=== PATIENT | male | born 1965 | race Caucasian/White ===

== ENCOUNTER 2023-03-08 09:01 | Outpatient (REF) | payer OTHER, SELFPAY | END 2023-03-08 09:02 | disposition home or self-care (01) | LOC: HO.HOSX 09:01 | PROVIDERS: Visit Provider Orthopaedic Surgery | DX: M25.511 Pain in right shoulder (principal) | CPT/HCPCS: 73030 ==

== ENCOUNTER 2023-03-08 09:56 | Outpatient (AMB) | payer OTHER, SELFPAY ==
--- NOTE | 2023-03-08 09:58 | A.OFFVIS_ITS ---
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 The patient did undergo right shoulder surgery in [place] approximately 10 years ago. He was told that he had ?bone spurs? removed from his right shoulder. He states that his right shoulder pain and weakness have been getting worse for the last year. He has done physical therapy exercises which aggravated his pain. He has also tried Tylenol and anti-inflammatory medicines which gave him minimal relief. He has had cortisone injections in the past which gave him no relief. FOR[facility]LY [facility] Social History (Updated 03/08/23 @ 10:07 by Stefany Wooten) Alcohol intake: current Patient Tobacco Use Status: Current everyday Tobacco user Physical Exam Const Other: Well-nourished well-developed very friendly male awake alert and oriented x3 in no acute distress the Extrem Other: Bilateral upper extremity examination shows good capillary refill, no skin lesions noted, normal sensation light touch Right shoulder examination shows decreased range of motion when compared to his left shoulder, 4+ out of 5 strength with supraspinatus testing, positive impingement signs, tenderness over his acromioclavicular joint, no instability Results Reviewed Results Reviewed: X-rays of the patient's right shoulder show severe acromioclavicular joint narrowing, a type 3 acromion, no acute bony abnormalities Assessment & Plan Assessment & Plan (1) Right shoulder pain: Code(s): M25.511 - Pain in right shoulder Plan Mr. Davis presents with progressively worsening right shoulder pain and weakness due to impingement syndrome, acromioclavicular joint arthritis and possible full-thickness rotator cuff tearing. Thus, I will send him for an MRI of his right shoulder for further evaluation of his rotator cuff tendons. If he does have a full-thickness tear I will recommend surgical repair to optimize is future functional level. He will continue with his range of motion exercises in the meantime. I will see him back once the MRI is completed to discuss the findings and treatment options. Feel free to call me at any time should questions regarding his orthopedic management arise. I spent 22 minutes in reviewing the patient's records and imaging studies, seeing the patient and documenting in the medical record. Orders: Orders XR shoulder RT min 2V Today M25.511 - Pain in right shoulder MR shoulder RT wo con Today M25.511 - Pain in right shoulder Coding Level of Care Code New Pt Level 2 (90937) Diagnoses Right shoulder pain M25.511
== END 2023-03-08 10:22 | disposition home or self-care (01) ==
PROVIDERS: Visit Provider Orthopaedic Surgery
DX: M25.511 Pain in right shoulder (principal)
CPT/HCPCS: 99202

== ENCOUNTER 2023-03-22 08:22 | Outpatient (AMB) | payer OTHER, SELFPAY ==
--- NOTE | 2023-03-22 08:29 | MHC.OFFVIS ---
Intake Vital Signs 03/22/23 08:32 Height 5 ft 6 in Weight 155 lb BMI 25.0 Intake Visit Reasons: OV-right shoulder MRI review Intake Note: Griffin is a 57 year old male who presents with his daughter for an MRI review of Right shoulder. Patient describes his right shoulder pain as sharp in nature. His pain has gotten worse over the last few years in spite of continued non operative treatments. He has had injections in the past which gave him minimal relief. He has also done physical therapy which aggravated his pain. He has tried Tylenol and anti-inflammatory medicines which gave him minimal relief. Allergies No Known Allergies Allergy (Verified 03/22/23 08:33) Medication List - Last Reconciled 03/22/23 by Dwaine Mcgee MD aspirin (Adult Low Dose Aspirin) 81 mg PO DAILY atorvastatin 40 mg PO DAILY cetirizine (Zyrtec) 10 mg PO DAILY PRN citalopram 20 mg PO DAILY verapamil 40 mg PO DAILY PFS Surgical History (Updated 03/22/23 @ 08:43 by Beverley Krueger CMA) History of inguinal hernia repair (Unknown) History of shoulder surgery (Unknown) Social History (Updated 03/08/23 @ 10:07 by Stefany Wooten) Alcohol intake: current Patient Tobacco Use Status: Current everyday Tobacco user Physical Exam Vital Signs: BMI result Body Mass Index 25.0 Const Other: Well-nourished well-developed very friendly male awake alert and oriented x3 in no acute distress Extrem Other: Bilateral upper extremity examination shows good capillary refill, no skin lesions noted, normal sensation light touch Right shoulder examination shows slightly decreased range of motion when compared to his left shoulder, 4+ out of 5 strength with supraspinatus testing, positive impingement signs, tenderness over his acromioclavicular joint, no instability Results Reviewed Results Reviewed: MRI of the patient's right shoulder show severe acromioclavicular joint narrowing, a type 3 acromion, signal change within the supraspinatus tendon due to rotator cuff tendinosis versus a small tendon tear Assessment & Plan Assessment & Plan (1) Impingement of right shoulder: Code(s): M25.811 - Other specified joint disorders, right shoulder Plan Mr. Davis presents with progressively worsening right shoulder pain due to impingement syndrome, acromioclavicular joint arthritis and rotator cuff tendinosis versus a small tear. I had a lengthy discussion with the patient regarding the treatment options. At this point he has failed continued non operative treatments. The risks and benefits of right shoulder surgery were discussed at length with the patient. The patient wishes to proceed with surgery. Surgery will most likely involve right shoulder diagnostic arthroscopy with distal clavicle excision, acromioplasty and rotator cuff repair showed a full-thickness tear be found at the time of his surgery. I will have my office contact the patient to pick a surgery date. He will follow-up as instructed. I spent 22 minutes in reviewing the patient's records and imaging studies, seeing the patient and documenting in the medical record. Coding Level of Care Code Est Pt Level 2 (29024) Diagnoses Impingement of right shoulder M25.811
[2023-03-22 08:32] VITALS: BMI 25.0
== END 2023-03-22 08:48 | disposition home or self-care (01) ==
PROVIDERS: Visit Provider Orthopaedic Surgery
DX: M75.41 Impingement syndrome of right shoulder (principal); M19.011 Primary osteoarthritis, right shoulder; M25.811 Other specified joint disorders, right shoulder
CPT/HCPCS: 99213

== ENCOUNTER → 2023-03-22 08:22 | Outpatient (BNVA) | payer OTHER, SELFPAY | PROVIDERS: Visit Provider Orthopaedic Surgery ==

== ENCOUNTER 2023-04-20 12:26 | Day surgery (SDC) | payer OTHER, SELFPAY ==
[2023-04-11 10:18] VITALS: BMI 25.0
[2023-04-20] VITALS (7 sets, daily range): BP systolic 134–181; BP diastolic 65–89; PULSE 89–97; RESP 16–18; TEMP 36.6–37.2; O2SAT 95–97
[2023-04-20] MEDS: Lactated Ringers 1,000 ML 100 ML IVCONT (13:14)
--- NOTE | 2023-04-20 14:10 | P.CONAN_ITS ---
Documented by User: Annalee Easton NP 04/19/23 09:57 HPI - Anesthesia Eval Consult details Narrative: 57yo M for Right Shoulder Arthroscopy, distal clavicle excision, acromioplasty, possible rotator cuff repair PMFSH Active Problems Active Problems: All Active Problems (Updated 04/11/23 @ 10:24 by Rubi Baker RN) Impingement of right shoulder (Acute) Right shoulder pain (Acute) Past Medical History Medical History (Updated 04/11/23 @ 10:24 by Rubi Baker RN) Pulmonary nodule Arthritis Anxiety Migraine Elevated cholesterol Surgical History Surgical History (Updated 04/11/23 @ 10:25 by Rubi Baker RN) H/O colonoscopy History of inguinal hernia repair (Unknown) History of shoulder surgery (Unknown) Social History Social History (Updated 03/08/23 @ 10:07 by Stefany Wooten) Are you a primary career placement specialist to a significant other at home: No Do you presently have visiting nurse or other home services: No Alcohol intake: current Patient Tobacco Use Status: Current everyday Tobacco user Tobacco use type: Cigarette Cigarette Packs Per Day: 1 Cigarettes Per Day: 20.0 Years Smoked: 40 Use of substances other than those prescribed or required for medical reasons: No Have you been hit, kicked, punched, or otherwise hurt by someone within the past year? If so, by whom?: No Are you DNR?: No Advance Directives Information Provided: Yes Advance Directives on File: No Recently lost weight without trying: No Eating poorly because of decreased appetite: No Nutrition Risks: No Nutritional Risk Poor oral hygiene: No Meds Allergies Allergy/AdvReac Type Severity Reaction Status Date / Time Sulfa (Sulfonamide Allergy Unknown childhood Verified 04/11/23 10:17 Antibiotics) allergy-reaction unknown Active Medications: Current Medications Cefazolin Sodium/Dextrose (Ancef) 2 gm in 50 mls @ 100 mls/hr IV PREOP ONE Stop: 04/20/23 05:53 Home Medications Medication Instructions Recorded Confirmed Last Taken Type aspirin 81 mg tablet,delayed 81 mg PO BEDTIME 03/22/23 04/11/23 04/18/23 History release (Adult Low Dose Aspirin) atorvastatin 40 mg tablet 40 mg PO BEDTIME 03/22/23 04/11/23 Unknown History cetirizine 10 mg capsule (Zyrtec) 10 mg PO DAILY PRN Allergy Symptoms 03/22/23 04/11/23 Unknown History citalopram 20 mg tablet 20 mg PO BEDTIME 03/22/23 04/11/23 Unknown History verapamil 40 mg tablet 40 mg PO BEDTIME 03/22/23 04/11/23 Unknown History Exam Height,Weight and Vital Signs: Height 5 ft 6 in Weight 70.307 kg Pertinent Lab Results Pertinent Lab Results: Outside [facility] 12/2022 WNL Assessment and Plan Assessment Anesthesia Assessment: Chart Reviewed Documented by User: Sheridan Neff DO 04/20/23 14:10 PMFSH Past Medical History Medical History (Updated 04/11/23 @ 10:24 by Rubi Baker RN) Pulmonary nodule Arthritis Anxiety Migraine Elevated cholesterol Family History Family history of problems with anesthesia: No Surgical History Surgical History (Updated 04/11/23 @ 10:25 by Rubi Baker RN) H/O colonoscopy History of inguinal hernia repair (Unknown) History of shoulder surgery (Unknown) History of Problems with Anesthesia: No Social History Social History (Updated 03/08/23 @ 10:07 by Stefany Wooten) Are you a primary career placement specialist to a significant other at home: No Do you presently have visiting nurse or other home services: No Alcohol intake: current Patient Tobacco Use Status: Current everyday Tobacco user Tobacco use type: Cigarette Cigarette Packs Per Day: 1 Cigarettes Per Day: 20.0 Years Smoked: 40 Use of substances other than those prescribed or required for medical reasons: No Have you been hit, kicked, punched, or otherwise hurt by someone within the past year? If so, by whom?: No Are you DNR?: No Advance Directives Information Provided: Yes Advance Directives on File: No Recently lost weight without trying: No Eating poorly because of decreased appetite: No Nutrition Risks: No Nutritional Risk Poor oral hygiene: No Meds Allergies Allergy/AdvReac Type Severity Reaction Status Date / Time Sulfa (Sulfonamide Allergy Unknown childhood Verified 04/11/23 10:17 Antibiotics) allergy-reaction unknown Home Medications Medication Instructions Recorded Confirmed Last Taken Type aspirin 81 mg tablet,delayed 81 mg PO BEDTIME 03/22/23 04/11/23 04/18/23 History release (Adult Low Dose Aspirin) atorvastatin 40 mg tablet 40 mg PO BEDTIME 03/22/23 04/11/23 Unknown History cetirizine 10 mg capsule (Zyrtec) 10 mg PO DAILY PRN Allergy Symptoms 03/22/23 04/11/23 Unknown History citalopram 20 mg tablet 20 mg PO BEDTIME 03/22/23 04/11/23 Unknown History verapamil 40 mg tablet 40 mg PO BEDTIME 03/22/23 04/11/23 Unknown History Exam Exam Date and Time: April 20, 2023 1407 Height,Weight and Vital Signs: Height 5 ft 6 in Weight 70.307 kg Vital Signs Temperature 98.9 F 04/20/23 13:06 Pulse Rate 94 04/20/23 13:06 Respiratory Rate 16 04/20/23 13:06 Blood Pressure 145/82 H 04/20/23 13:06 Pulse Oximetry 97 04/20/23 13:06 Oxygen Delivery Method Room Air 04/20/23 13:06 Temperature 98.9 F 04/20/23 13:06 Pulse Rate 94 04/20/23 13:06 Respiratory Rate 16 04/20/23 13:06 Blood Pressure 145/82 H 04/20/23 13:06 Pulse Oximetry 97 04/20/23 13:06 Oxygen Delivery Method Room Air 04/20/23 13:06 Airway Mallampati Class: I TM Dist: >3cm Neck ROM: Full Loose/Missing/Broken Teeth: No Heart: S1S2 Lungs: CTAB Assessment and Plan Assessment Anesthesia Assessment: Anesthesia Plan Discussed and Chart Reviewed Final Anesthetic Review Family History of Problems with Anesthesia: No History of Problems with Anesthesia: No NPO: Yes ASA Class: II Final Preanesthetic Review: No Changes in Pt Med Stat, Meds/Allgs Chart Reviewed, Consent Obtained/Reviewed and Anes Risks/Benef Reviewed Patient Risk: Low Procedure Risk: Intermediate Assessment/Block/Sedation in SS: Assess/Block/Sedation-SS (right brachial plexus block to be done in pre-op) Anesthetic Plan Anesthetic Plan: GA, Regional Block (right brachial plexus block) and Agree w/ A ssess. and Plan Disposition: Standard PACU
--- NOTE | 2023-04-20 16:01 | PM.OP ---
Brief Operative Note Date of Service: 04/20/23 Pre-op diagnosis: Right shoulder acromioclavicular joint arthritis, right shoulder impingement syndrome, right shoulder adhesive capsulitis Post-op diagnosis: same Procedure: Right shoulder diagnostic arthroscopy with right shoulder arthroscopic distal clavicle excision, right shoulder arthroscopic acromioplasty, right shoulder arthroscopic anterior capsular release, right shoulder manipulation under anesthesia Implants: none Surgeon: Dwaine Mcgee MD Anesthesia: GETA and regional Was an Clinical Quality Manager used for this Procedure?: No Estimated blood loss (mL): 10 Pathology: none sent Condition: stable Disposition: PACU
--- NOTE | 2023-04-20 16:02 | P.OP_ITS ---
Operative Note Operative Note Date of Service: 04/20/23 Narrative: After the patient was identified as Griffin Davis and his right shoulder was initialed by myself the patient was brought to the holding area where a right shoulder interscalene regional block was performed by the anesthesiologist in routine fashion. The patient was then brought to the operating room where general anesthesia was induced by the anesthesiologist in routine fashion. The patient was given 2 g of IV Ancef preoperatively for infection prophylaxis. Examination under anesthesia of the patient's right shoulder showed decreased passive range of motion when compared to the left shoulder. The patient's right shoulder had passive forward flexion to 130 degrees compared to 170 degrees, external rotation to 40 degrees compared to 60 degrees, and internal rotation to 50 degrees compared to 60 degrees. The patient was gently positioned in the beach chair position with all bony prominences well padded. The patient's right shoulder region and upper extremity were prepped and draped in sterile fashion. A formal time-out was completed. A #11 scalpel blade was used to make a posterior portal 2 cm inferior and 1 cm medial to the posterolateral corner of the acromion. Blunt trocar technique was used to enter the glenohumeral joint in routine fashion. An anterior portal was made just lateral to the coracoid process after proper positioning was confirmed using a spinal needle. Diagnostic arthroscopy showed minimal degenerative changes of the glenoid and humeral head articular surfaces. There was no evidence of rotator cuff tearing. There was no evidence of injury to the biceps tendon or its insertion onto the glenoid. There was inflammation of the anterior joint capsule consistent with adhesive capsulitis. The ArthroCare Wand was then used to perform an anterior capsular release between the inferior border of the biceps tendon and the superior border of the subscapularis tendon. The arthroscope was then placed from the posterior portal into the subacromial space. A lateral portal was made 2 fingerbreadths lateral to the anterior lateral corner of the acromion. The ArthroCare Wand was used to ablate soft tissues along the undersurface of the acromion as well as to excise the coracoacromial ligament. There was a sharp spur along the undersurface of the acromion which was removed using the hooded bur. The arthroscope was then placed into the lateral portal and the acromio plasty was completed with the bur in the posterior portal using the posterior aspect of the acromion as a cutting block. The ArthroCare Wand was then brought in through the anterior portal and was used to ablate soft tissues along the acromioclavicular joint and distal clavicle. The posterior and superior ligamentous structures were left intact. A distal clavicle excision of 8 mm was performed using the fluted bur. Any remaining bursal tissue was removed using the arthroscopic shaver. The subacromial space was irrigated and then drained. All arthroscopic instruments were removed. A gentle manipulation under anesthesia was then performed. Full passive range of motion was easily obtained. The 3 portals were closed with 3-0 nylon interrupted suture. The subacromial space was injected with Marcaine. Dry sterile dressing was placed over all incisions. The patient's right upper extremity was placed into a sling. The patient was awoken and extubated in the operating room. The patient was transferred to the recovery room in stable condition.
[2023-04-20] MEDS: cefTRIAXone sodium 1 GM in 0.9 % Sodium Chloride 50 ML IV (16:35)
== END 2023-04-20 17:16 | disposition home or self-care (01) ==
PROVIDERS: PCP Internal Medicine; Visit Provider Orthopaedic Surgery
PROC: (CPT 29805; principal; 2023-04-20 14:40)
DX: M75.01 Adhesive capsulitis of right shoulder (principal); M75.41 Impingement syndrome of right shoulder; M19.011 Primary osteoarthritis, right shoulder; F17.210 Nicotine dependence, cigarettes, uncomplicated
CPT/HCPCS: 29824; 29826; J0171; J0690; J0696; J1100; J2250; J2371; J2405; J2704; J2795; J3010

== ENCOUNTER → 2023-04-20 12:26 | Outpatient (BNV) | payer OTHER, SELFPAY | PROVIDERS: PCP Internal Medicine; Visit Provider Orthopaedic Surgery | DX: M19.011 Primary osteoarthritis, right shoulder (principal); M75.41 Impingement syndrome of right shoulder; M75.01 Adhesive capsulitis of right shoulder | CPT/HCPCS: 29824; 29826 ==

== ENCOUNTER 2023-05-03 11:27 | Outpatient (AMB) | payer OTHER, SELFPAY ==
--- NOTE | 2023-05-03 11:30 | A.OFFVIS_ITS ---
Intake Vital Signs 05/03/23 11:35 Height 5 ft 6 in Weight 152 lb BMI 24.5 Handedness Right Intake Visit Reasons: PO-Rt , Poss Repair 04/20/23 Intake Note: Griffin a 57 year old male right hand dominant presents today for a post operative right shoulder on 04/20/23 Patient reports he is doing well, he gets a bit sore when he is doing his at home exercises. No other concerns at the moment. Allergies Sulfa (Sulfonamide Antibiotics) Allergy (Unknown, Verified 04/11/23 10:17) childhood allergy-reaction unknown HPI PO-Rt , Poss Repair 04/20/23 HPI Details 57-year-old male who presents in the off ice today for 13 days status post right shoulder arthroscopic distal clavicle excision, right shoulder arthroscopic acromioplasty, right shoulder arthroscopic anterior capsular release, right shoulder manipulation under anesthesia, which was performed on 04/20/[address] Mcgee. The patient reports he is doing well. He states he is not sure if the shoulder has been better since surgery due to feeling a bit sore. He confirms that he has been working at home exercises. He has no concerns while in the office today. PENDING SALE TO [facility] Medical History (Updated 04/11/23 @ 10:24 by Rubi Baker RN) Pulmonary nodule Arthritis Anxiety Migraine Elevated cholesterol Surgical History (Updated 05/03/23 @ 11:48 by Ni Birmingham) H/O colonoscopy History of inguinal hernia repair (Unknown) History of shoulder surgery (Unknown) Social History (Updated 03/08/23 @ 10:07 by Stefany Wooten) Are you a primary childcare aide to a significant other at home: No Do you presently have visiting nurse or other home services: No Alcohol intake: current Patient Tobacco Use Status: Current everyday Tobacco user Tobacco use type: Cigarette Cigarette Packs Per Day: 1 Cigarettes Per Day: 20.0 Years Smoked: 40 Review of Systems Const All systems reviewed & are unremarkable except as noted in HPI and below Physical Exam Vital Signs: BMI result Body Mass Index 24.5 Const General: cooperative, healthy appearing and no acute distress Resp Effort & Inspection: normal respiratory effort and able to speak in complete sentences Cardio Rate: regular rate Peripheral pulses: Peripheral pulses 2+ throughout GI Palpation (GI): Soft to palpation Skin Lesions: no lesions Rashes: no rashes Extrem Other: Right shoulder: Incision site is clean, dry, and intact. Sutures intact. No surrounding erythema or drainage. No signs of infection. Full ROM in all planes. NVI. Assessment & Plan Assessment & Plan (1) S/P arthroscopy of right shoulder: Onset Date: ~04/20/23 Comment: Right shoulder arthroscopic distal clavicle excision, right shoulder arthroscopic acromioplasty, right shoulder arthroscopic anterior capsular re lease, right shoulder manipulation under anesthesia; Code(s): Z98.890 - Other specified postprocedural states Plan Mr. Davis is a 57-year-old male who presents in the office today for 13 days status post right shoulder arthroscopic distal clavicle excision, right shoulder arthroscopic acromioplasty, right shoulder arthroscopic anterior capsular release, right shoulder manipulation under anesthesia, which was performed on 04/20/[address] Mcgee. The patient reports he is doing well. He states he is not sure if the shoulder has been better since surgery due to feeling a bit sore. He confirms that he has been working at home exercises. He has no concerns while in the office today. Sutures were removed and steri-stripes were applied. We discussed the role of formal physical therapy in the office today. At this time the patient has been working on at home exercises and has full ROM in all planes. Therefore, I do not feel he would benefit with formal physical therapy and it was deferred at this time. In the event the patient feels he is not progressing or starts to lose ROM he should call the office and a referral to physical therapy will be placed at that time. Follow up for the right shoulder is PRN, or sooner if needed. The patient is looking to be evaluated for the left shoulder. An appointment with Dr. Mcgee was made while in the office today. Patient Instructions: Scribed by Ni Birmingham medical billing supervisor, for Erin Rock PA-C on 05/03/2023 at 11:46 am, EST. Coding Level of Care Code Global (50529) Diagnoses S/P arthroscopy of right shoulder Z98.890
[2023-05-03 11:35] VITALS: BMI 24.5
== END 2023-05-03 11:59 | disposition home or self-care (01) ==
PROVIDERS: PCP Internal Medicine; Visit Provider Physician Assistant
DX: Z98.890 Other specified postprocedural states (principal)
CPT/HCPCS: 99024

== ENCOUNTER → 2023-05-03 11:27 | Outpatient (BNVA) | payer OTHER, SELFPAY | PROVIDERS: PCP Internal Medicine; Visit Provider Physician Assistant ==

== ENCOUNTER 2023-05-09 09:11 | Outpatient (AMB) | payer OTHER, SELFPAY ==
[2023-05-09 09:13] VITALS: BMI 24.5
--- NOTE | 2023-05-09 09:13 | A.OFFVIS_ITS ---
Intake Vital Signs 05/09/23 09:13 Height 5 ft 6 in Weight 152 lb BMI 24.5 Intake Visit Reasons: Newprob-Left shoulder pain, Right shoulder pain Intake Note: Griffin is a 57 year old Right 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 male who presents with Left shoulder pain. The patient did undergo right shoulder arthroscopic surgery on 04/20/2023. He reports minimal discomfort in his right shoulder. Describes his left shoulder pain as sharp and severe in nature. States that his left shoulder pain has gotten worse over the last few years in spite of continued non opera tive treatments. He states that his left shoulder pain feels like his right shoulder pain did prior to his recent surgery. Most of the pain is along the superior and lateral aspects of his shoulder. He denies any weakness. He has had injections in the past which gave him minimal relief. He has also done physical therapy exercises which aggravated his pain. Allergies Sulfa (Sulfonamide Antibiotics) Allergy (Unknown, Verified 05/09/23 09:28) childhood allergy-reaction unknown Medication List - Last Reconciled 05/09/23 by Dwaine Mcgee MD aspirin (Adult Low Dose Aspirin) 81 mg PO BEDTIME atorvastatin 40 mg PO BEDTIME cetirizine (Zyrtec) 10 mg PO DAILY PRN citalopram 20 mg PO BEDTIME oxycodone 10 mg (2 x 5 mg) PO Q4H PRN verapamil 40 mg PO BEDTIME PFSH Medical History (Updated 05/08/23 @ 15:52 by Dwaine Mcgee MD) Pulmonary nodule Arthritis Anxiety Migraine Elevated cholesterol Surgical History (Updated 05/03/23 @ 11:48 by Ni Birmingham) H/O colonoscopy History of inguinal hernia repair (Unknown) History of shoulder surgery (Unknown) Social History (Updated 05/09/23 @ 09:29 by Beverley Krueger CMA) Are you a primary career development specialist to a significant other at home: No Do you presently have visiting nurse or other home services: No Alcohol intake: current Patient Tobacco Use Status: Current everyday Tobacco user Tobacco use type: Cigarette Cigarette Packs Per Day: 1 Cigarettes Per Day: 20.0 Years Smoked: 40 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 Right 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 Physical Exam Vital Signs: BMI result Body Mass Index 24.5 Const Other: Well-nourished well-developed very friendly male awake alert and oriented x3 in no acute distress Extrem Other: Right shoulder examination shows that the surgical incisions are well healed, no erythema, full range of motion when compared to his left shoulder, minimal discomfort with range of motion Left shoulder examination shows positive impingement signs, tenderness over his acromioclavicular joint, 4+ out of 5 strength with supraspinatus testing, no instability Results Reviewed Results Reviewed: X-rays of the patient's left shoulder show severe acromioclavicular joint narrowing, a type 3 acromion, no acute bony abnormalities Assessment & Plan Assessment & Plan (1) Right shoulder pain: Code(s): M25.511 - Pain in right shoulder Plan Mr. Us presents with progressively worsening left shoulder pain due to impingement syndrome and acromioclavicular joint arthritis. I had a lengthy discussion with the patient regarding the treatment options. At this point appears to be failing continued non operative treatments. The risks and benefits of left shoulder surgery were discussed at length with the patient. The patient is interested in proceeding with surgery later this year. He will contact my office to pick a surgery date when he chooses to do so. Surgery will most likely involve left shoulder diagnostic arthroscopy with distal clavicle excision and acromioplasty. The patient will continue with his range of motion exercises in the meantime. Feel free to call me at any time should questions regarding his orthopedic management arise. I spent 22 minutes in reviewing the patient's records and imaging studies, seeing the patient and documenting in the medical record. Orders: Orders XR shoulder LT min 2V Today M75.42 - Impingement syndrome of left shoulder Coding Level of Care Code Est Pt Level 2 (33913) Diagnoses Right shoulder pain M25.511
== END 2023-05-09 09:57 | disposition home or self-care (01) ==
PROVIDERS: PCP Internal Medicine; Visit Provider Orthopaedic Surgery
DX: M25.512 Pain in left shoulder (principal)
CPT/HCPCS: 99213

== ENCOUNTER 2023-05-09 10:38 | Outpatient (REF) | payer OTHER, SELFPAY ==
--- NOTE | ~2023-05-09 | XR_ITS ---
EXAMINATION: XR SHOULDER, LEFT CLINICAL INFORMATION: Impingement syndrome of left shoulder COMPARISON: None available. TECHNIQUE: Two views of the left shoulder. FINDINGS: Bones have normal alignment. There appears to be negligible hypertrophy of the clavicle at the acromioclavicular joint. No evidence of any large inferiorly directed osteophytes. The acromiohumeral distance is 7-8 mm (as measured on the frontal view). There is no evidence of an os acromiale or hook-shaped acromion. Also, no evidence of calcium deposition within rotator cuff tendons. The glenohumeral joint space is maintained. Alignment is normal at the glenohumeral joint. The visualized left upper lung is unremarkable. XR/XR shoulder LT min 2V IMPRESSION: * Negligible osteoarthrosis of the acromioclavicular joint. * No evidence of any osseous abnormalities at would predispose to subacromial impingement disorder. * No evidence of calcific tendinopathy.
== END 2023-05-09 10:39 | disposition home or self-care (01) ==
LOC: HO.HOSX 10:38
PROVIDERS: Visit Provider Orthopaedic Surgery
DX: M75.42 Impingement syndrome of left shoulder (principal); M54.2 Cervicalgia
CPT/HCPCS: 73030

== ENCOUNTER 2023-05-30 14:32 | Outpatient (AMB) | payer OTHER, SELFPAY ==
[2023-05-30 14:48] VITALS: BMI 24.5
--- NOTE | 2023-05-30 14:48 | MHC.OFFVIS ---
Intake Vital Signs 05/30/23 14:48 Height 5 ft 6 in Weight 152 lb BMI 24.5 Intake Visit Reasons: OV - Right Shoulder MRI Review Intake Note: Griffin is a 57 year old male who presents for an MRI review of his Left shoulder. He describes his left shoulder pain as sharp and severe in nature, 12/19. His pain is mostly along the superior and lateral aspects of his left shoulder. His pain has gotten worse over the last few years in spite of continued non operative treatments. The patient did undergo right shoulder arthroscopic surgery on 04/20/2023. He denies any discomfort in his right shoulder. He has had injections given into his left shoulder which gave him minimal relief. He has also done physical therapy which aggravated his pain. He has tried Tylenol and anti-inflammatory medicines which gave him minimal relief. Allergies Sulfa (Sulfonamide Antibiotics) Allergy (Unknown, Verified 05/30/23 14:49) childhood allergy-reaction unknown Medication List - Last Reconciled 05/30/23 by Dwaine Mcgee MD aspirin (Adult Low Dose Aspirin) 81 mg PO BEDTIME atorvastatin 40 mg PO BEDTIME cetirizine (Zyrtec) 10 mg PO DAILY PRN citalopram 20 mg PO BEDTIME oxycodone 10 mg (2 x 5 mg) PO Q4H PRN verapamil 40 mg PO BEDTIME PFSH Medical History (Updated 05/11/23 @ 07:30 by Dwaine Mcgee MD) Pulmonary nodule Arthritis Anxiety Migraine Elevated cholesterol Surgical History (Updated 05/03/23 @ 11:48 by Ni Birmingham) H/O colonoscopy History of inguinal hernia repair (Unknown) History of shoulder surgery (Unknown) Social History (Updated 05/09/23 @ 09:29 by Beverley Krueger CMA) Are you a primary progressive care unit registered nurse to a significant other at home: No Do you presently have visiting nurse or other home services: No Alcohol intake: current Patient Tobacco Use Status: Current everyday Tobacco user Tobacco use type: Cigarette Cigarette Packs Per Day: 1 Cigarettes Per Day: 20.0 Years Smoked: 40 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 Physical Exam Vital Signs: BMI result Body Mass Index 24.5 Const Other: Well-nourished well-developed very friendly male awake alert and oriented x3 in no acute distress Extrem Other: Bilateral upper extremity examination shows good capillary refill, no skin lesions noted, normal sensation light touch Left shoulder examination shows almost full range of motion when compared to his right shoulder, 5/5 strength with supraspinatus testing, positive impingement signs, tenderness over his acromioclavicular joint, no instability Results Reviewed Results Reviewed: MRI of the patient's left shoulder show severe acromioclavicular joint narrowing, a type 3 acromion, signal change within the supraspinatus tendon most likely due to rotator cuff tendinosis Assessment & Plan Assessment & Plan (1) Impingement syndrome of left shoulder: Code(s): M75.42 - Impingement syndrome of left shoulder Plan Mr. Davis presents with progressively worsening left shoulder pain due to impingement syndrome and acromioclavicular joint arthritis. I had a lengthy discussion with the patient regarding the treatment options. At this point he has failed continued non operative treatments. The risks and benefits of left shoulder surgery were discussed at length with the patient. The patient wishes to proceed with surgery. Surgery will most likely involve left shoulder diagnostic arthroscopy with distal clavicle excision and acromioplasty. The patient will be scheduled for next available date. He will follow-up as instructed. Feel free to call me at any time should questions regarding his orthopedic management arise. I spent 22 minutes in reviewing the patient's records and imaging studies, seeing the patient and documenting in the medical record. Coding Level of Care Code Est Pt Level 2 (65411) Diagnoses Impingement syndrome of left shoulder M75.42
== END 2023-05-30 15:11 | disposition home or self-care (01) ==
PROVIDERS: PCP Internal Medicine; Visit Provider Orthopaedic Surgery
DX: M75.42 Impingement syndrome of left shoulder (principal)
CPT/HCPCS: 99213

== ENCOUNTER → 2023-05-30 14:32 | Outpatient (BNVA) | payer OTHER, SELFPAY | PROVIDERS: PCP Internal Medicine; Visit Provider Orthopaedic Surgery ==

== ENCOUNTER 2023-06-15 11:09 | Day surgery (SDC) | payer OTHER, SELFPAY ==
[2023-06-13 10:18] VITALS: BMI 25.0
[2023-06-13 10:23] VITALS: BMI 25.0
--- NOTE | 2023-06-13 12:20 | P.CONAN_ITS ---
Documented by User: Annalee Easton NP 06/13/23 12:21 HPI - Anesthesia Eval Consult details Narrative: 57yo M for Left Shoulder Arthroscopy distal clavicle excision with acromioplasty s/p Right shoulder 04/2023 with Block/GA-ETT 7 PMFSH Active Problems Active Problems: All Active Problems (Updated 05/11/23 @ 07:30 by Dwaine Mcgee MD) Neck pain on left side (Acute) Impingement syndrome of left shoulder (Acute) S/P arthroscopy of right shoulder (Acute ~04/20/23) Impingement of right shoulder (Acute) Right shoulder pain (Acute) Past Medical History Medical History (Updated 05/11/23 @ 07:30 by Dwaine Mcgee MD) Pulmonary nodule Arthritis Anxiety Migraine Elevated cholesterol Family History Family history of problems with anesthesia: No Surgical History Surgical History (Updated 06/13/23 @ 10:14 by Rubi Baker RN) H/O colonoscopy History of inguinal hernia repair (Unknown) History of shoulder surgery (Unknown) History of Problems with Anesthesia: No Social History Social History (Updated 05/09/23 @ 09:29 by Beverley Krueger CMA) Are you a primary hearing care practitioner to a significant other at home: No Do you presently have visiting nurse or other home services: No Alcohol intake: current Patient Tobacco Use Status: Current everyday Tobacco user Tobacco use type: Cigarette Cigarette Packs Per Day: 1 Cigarettes Per Day: 20 Years Smoked: 40 Use of substances other than those prescribed or required for medical reasons: No Have you been hit, kicked, punched, or otherwise hurt by someone within the past year? 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 Meds Allergies Allergy/AdvReac Type Severity Reaction Status Date / Time Sulfa (Sulfonamide Allergy Unknown childhood Verified 05/30/23 14:49 Antibiotics) allergy-reaction unknown Active Medications: Current Medications Cefazolin Sodium/Dextrose (Ancef) 2 gm in 50 mls @ 100 mls/hr IV PREOP ONE Stop: 06/15/23 06:13 Home Medications ?Medication ?Instructions ?Recorded ?Confirmed ?Last Taken ?Type aspirin 81 mg tablet,delayed 81 mg PO BEDTIME 03/22/23 06/13/23 04/18/23 History release (Adult Low Dose Aspirin) atorvastatin 40 mg tablet 40 mg PO BEDTIME 03/22/23 06/13/23 Unknown History cetirizine 10 mg capsule (Zyrtec) 10 mg PO DAILY PRN Allergy Symptoms 03/22/23 06/13/23 Unknown History citalopram 20 mg tablet 20 mg PO BEDTIME 03/22/23 06/13/23 Unknown History verapamil 40 mg tablet 40 mg PO BEDTIME 03/22/23 06/13/23 Unknown History Exam Height,Weight and Vital Signs: Height 5 ft 6 in Weight 70.307 kg Pertinent Lab Results Pertinent Lab Results: Outside [facility] 12/2022 WNL Assessment and Plan Assessment Anesthesia Assessment: Chart Reviewed Final Anesthetic Review Family History of Problems with Anesthesia: No History of Problems with Anesthesia: No Documented by User: Supriya Turcios MD 06/15/23 11:47 [facility] Past Medical History Medical History (Updated 05/11/23 @ 07:30 by Dwaine Mcgee MD) Pulmonary nodule Arthritis Anxiety Migraine Elevated cholesterol Surgical History Surgical History (Updated 06/13/23 @ 10:14 by Rubi Baker RN) H/O colonoscopy History of inguinal hernia repair (Unknown) History of shoulder surgery (Unknown) Social History Social History (Updated 05/09/23 @ 09:29 by Beverley Krueger CMA) Are you a primary hearing care practitioner to a significant other at home: No Do you presently have visiting nurse or other home services: No Alcohol intake: current Patient Tobacco Use Status: Current everyday Tobacco user Tobacco use type: Cigarette Cigarette Packs Per Day: 1 Cigarettes Per Day: 20 Years Smoked: 40 Use of substances other than those prescribed or required for medical reasons: No Have you been hit, kicked, punched, or otherwise hurt by someone within the past year? 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 Meds Allergies Allergy/AdvReac Type Severity Reaction Status Date / Time Sulfa (Sulfonamide Allergy Unknown childhood Verified 05/30/23 14:49 Antibiotics) allergy-reaction unknown Home Medications ?Medication ?Instructions ?Recorded ?Confirmed ?Last Taken ?Type aspirin 81 mg tablet,delayed 81 mg PO BEDTIME 03/22/23 06/13/23 04/18/23 History release (Adult Low Dose Aspirin) atorvastatin 40 mg tablet 40 mg PO BEDTIME 03/22/23 06/13/23 Unknown History cetirizine 10 mg capsule (Zyrtec) 10 mg PO DAILY PRN Allergy Symptoms 03/22/23 06/13/23 Unknown History citalopram 20 mg tablet 20 mg PO BEDTIME 03/22/23 06/13/23 Unknown History verapamil 40 mg tablet 40 mg PO BEDTIME 03/22/23 06/13/23 Unknown History Exam Airway Mallampati Class: II TM Dist: >3cm Neck ROM: Full Heart: rrr Lungs: cta Assessment and Plan Assessment Anesthesia Assessment: Anesthesia Plan Discussed Final Anesthetic Review NPO: Yes ASA Class: II Final Preanesthetic Review: No Changes in Pt Med Stat, Meds/Allgs Chart Reviewed and Consent Obtained/Reviewed Patient Risk: Intermediate Procedure Risk: Intermediate Anesthetic Plan Anesthetic Plan: GA Disposition: Standard PACU
[2023-06-15 11:17] VITALS: BP 138/79; PULSE 97; RESP 20; TEMP 36.8; O2SAT 99; BMI 25.3
[2023-06-15] MEDS: Lactated Ringers 1,000 ML 100 ML IVCONT (11:34)
[2023-06-15 14:05] VITALS: BP 149/79; PULSE 90; RESP 12; TEMP 36.1; O2SAT 97
--- NOTE | 2023-06-15 14:05 | PM.OP ---
Brief Operative Note Date of Service: 06/15/23 Pre-op diagnosis: Left shoulder impingement syndrome, left shoulder acromioclavicular joint arthritis, left shoulder adhesive capsulitis Post-op diagnosis: same Procedure: Left shoulder diagnostic arthroscopy with left shoulder arthroscopic distal clavicle excision, left shoulder arthroscopic acromioplasty, left shoulder arthroscopic anterior capsular release, left shoulder manipulation under anesthesia Implants: none Surgeon: Dwanie Mcgee MD Anesthesia: GETA and regional Was an Rib Builder used for this Procedure?: No Estimated blood loss (mL): 10 Pathology: none sent Condition: stable Disposition: PACU
--- NOTE | 2023-06-15 14:06 | W.PM.OPN ---
Operative Note Operative Note Date of Service: 06/15/23 Narrative: After the patient was identified as Griffin Davis and his left shoulder was initialed by myself the patient was brought to the holding area where a left shoulder interscalene regional block was performed by the anesthesiologist in routine fashion. The patient was then brought to the operating room where general anesthesia was induced by the anesthesiologist in routine fashion. The patient was given 2 g of IV Ancef preoperatively for infection prophylaxis. Examination under anesthesia of the patient's left shoulder showed decreased range of motion when compared to the right shoulder. The patient's left shoulder had forward flexion to 140 degrees compared to 170 degrees, external rotation to 40 degrees compared to 60 degrees, and internal rotation to 40 degrees compared to 50 degrees. The patient was gently positioned in the beach chair position with all bony prominences well padded. The patient's left shoulder region and upper extremity were prepped and draped in sterile fashion. A formal time-out was completed. A #11 scalpel blade was used to make a posterior portal 2 cm inferior and 1 cm medial to the posterolateral corner of the acromion. Blunt trocar technique was used to enter the glenohumeral joint in routine fashion. An anterior portal was made just lateral to the coracoid process after proper positioning was confirmed using a spinal needle. Diagnostic arthroscopy showed minimal degenerative changes of the glenoid and humeral head articular surfaces. There was no evidence of rotator cuff tearing. There was no evidence of injury to the biceps tendon or its insertion onto the glenoid. There was inflammation of the anterior joint capsule consistent with adhesive capsulitis. The ArthroCare Wand was then used to perform an anterior capsular release between the inferior border of the biceps tendon and the superior border of the subscapularis tendon. The arthroscope was then placed from the posterior portal into the subacromial space. A lateral portal was made 2 fingerbreadths lateral to the anterior lateral corner of the acromion. The ArthroCare Wand was used to ablate soft tissues along the undersurface of the acromion as well as to excise the coracoacromial ligament. There was a sharp spur along the undersurface of the acromion which was removed using the hooded bur. The arthroscope was then placed into the lateral portal and the acromioplasty was completed with the bur in the posterior portal using the posterior aspect of the acromion as a cutting block. The ArthroCare Wand was then brought in through the anterior portal and was used to ablate soft tissues along the acromioclavicular joint and distal clavicle. The posterior and superior ligamentous structures were left intact. A distal clavicle excision of 8 mm was performed using the hooded bur. Any remaining bursal tissue was removed using the arthroscopic shaver. The subacromial space was irrigated and then drained. All arthroscopic instruments were removed. A gentle manipulation under anesthesia was then performed. Full passive range of motion was easily obtained. The 3 portals were closed with 3-0 nylon interrupted suture. The subacromial space was injected with Marcaine. Dry sterile dressing was placed over all incisions. The patient's left upper extremity was placed into a sling. The patient was awoken and extubated in the operating room. The patient was transferred to the recovery room in stable condition.
[2023-06-15] MEDS: cefTRIAXone sodium 1 GM in 0.9 % Sodium Chloride 50 ML IV (14:09)
[2023-06-15 14:10] VITALS: BP 138/81; PULSE 97; RESP 16; O2SAT 98
[2023-06-15 14:15] VITALS: BP 146/77; PULSE 96; RESP 20; O2SAT 94
[2023-06-15 14:20] VITALS: BP 147/79; PULSE 94; RESP 16; O2SAT 94
[2023-06-15 14:35] VITALS: BP 138/75; PULSE 89; RESP 18; TEMP 36.9; O2SAT 93
== END 2023-06-15 15:01 | disposition home or self-care (01) ==
PROVIDERS: PCP Internal Medicine; Visit Provider Orthopaedic Surgery
PROC: (CPT 29805; principal; 2023-06-15 14:00)
DX: M75.42 Impingement syndrome of left shoulder (principal); M75.02 Adhesive capsulitis of left shoulder; M19.012 Primary osteoarthritis, left shoulder; E78.00 Pure hypercholesterolemia, unspecified; R91.1 Solitary pulmonary nodule; F41.9 Anxiety disorder, unspecified; G43.909 Migraine, unspecified, not intractable, without status migrainosus; Z79.82 Long term (current) use of aspirin; Z79.899 Other long term (current) drug therapy; Z88.2 Allergy status to sulfonamides; Z98.890 Other specified postprocedural states; F17.210 Nicotine dependence, cigarettes, uncomplicated
CPT/HCPCS: 29824; 29825; 29826; J0131; J0171; J0690; J0696; J1100; J2250; J2405; J2704; J2795; J3010

== ENCOUNTER → 2023-06-15 11:09 | Outpatient (BNV) | payer OTHER, SELFPAY | PROVIDERS: PCP Internal Medicine; Visit Provider Orthopaedic Surgery | DX: M75.42 Impingement syndrome of left shoulder (principal); M75.02 Adhesive capsulitis of left shoulder; M19.012 Primary osteoarthritis, left shoulder | CPT/HCPCS: 29824; 29826 ==

== ENCOUNTER 2023-06-28 10:07 | Outpatient (AMB) | payer OTHER, SELFPAY ==
--- NOTE | 2023-06-28 10:16 | A.OFFVIS_ITS ---
Intake Intake Visit Reasons: PO-Lt Shld 06/15/23 Intake Note: Griffin a 57 year old male presents today for a post operative left shoulder on 06/15/23 Patient reports he is doing well, states stiffness with todays weather. Allergies Sulfa (Sulfonamide Antibiotics) Allergy (Unknown, Verified 06/28/23 10:21) childhood allergy-reaction unknown HPI PO-Lt Shld 06/15/23 HPI Details 57-year-old gentleman who returns to the office today status post left shoulder arthroscopy with Dr. Scott on 06/15/2023. He states he is doing well since surgery. Been working on some home exercises which include range of motion. He does have some stiffness with external rotation. No concerns today. [facility] Medical History (Updated 05/11/23 @ 07:30 by Dwaine Mcgee MD) Pulmonary nodule Arthritis Anxiety Migraine Elevated cholesterol Surgical History H/O colonoscopy History of inguinal hernia repair (Unknown) History of shoulder surgery (Unknown) Social History Are you a primary overnight caregiver to a significant other at home: No Do you presently have visiting nurse or other home services: No Alcohol intake: current Patient Tobacco Use Status: Current everyday Tobacco user Tobacco use type: Cigarette Cigarette Packs Per Day: 1 Cigarettes Per Day: 20 Years Smoked: 40 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 No redness or drainage. Forward flexion to 110 degrees. External rotation to 45. He can internally rotate to S1. Results Reviewed Results Reviewed: Brief Operative Note Date of Service: 06/15/23 Pre-op diagnosis: Left shoulder impingement syndrome, left shoulder acromioclavicular joint arthritis, left shoulder adhesive capsulitis Post-op diagnosis: same Procedure: Left shoulder diagnostic arthroscopy with left shoulder arthroscopic distal clavicle excision , left shoulder arthroscopic acromioplasty, left shoulder arthroscopic anterior capsular release, left shoulder manipulation under anesthesia Implants: none Surgeon: Dwaine Mcgee MD Assessment & Plan Assessment & Plan (1) Impingement syndrome of left shoulder: Code(s): M75.42 - Impingement syndrome of left shoulder Plan: Sutures removed today Steri-Strips applied. I did recommend a course of physical therapy to work on range of motion periscapular and rotator cuff strength. He defers formal physical therapy at this time but states he will work on home physical therapy. I did show him some exercises in the office today to work on improving his external rotation. If he does not notice improvement in this or has a decline in his motion he should contact us sooner than later for formal physical therapy otherwise he will see us back in [address] Mcgee sooner if needed. Coding Level of Care Code Global (44355) Diagnoses Impingement syndrome of left shoulder M75.42
== END 2023-06-28 10:55 | disposition home or self-care (01) ==
PROVIDERS: PCP Internal Medicine; Visit Provider Physician Assistant
DX: M75.42 Impingement syndrome of left shoulder (principal)
CPT/HCPCS: 99024

== ENCOUNTER → 2023-06-28 10:07 | Outpatient (BNVA) | payer OTHER, SELFPAY | PROVIDERS: PCP Internal Medicine; Visit Provider Physician Assistant ==

== ENCOUNTER 2023-07-25 08:53 | Outpatient (AMB) | payer OTHER, SELFPAY ==
--- NOTE | 2023-07-25 08:53 | A.OFFVIS_ITS ---
Vital Signs 07/25/23 08:57 Height 5 ft 6 in Weight 155 lb BMI 25.0 Intake Visit Reasons: po-Lt Shld 06/15/23 Intake Note: Griffin is a 57 year old Male who presents for his post operative appointment s/p left shoulder on 06/15/23 . Patient reports he is having some pain and is having a hard time with his ROM. He just started physical therapy last week. He does take oxycodone which gives him fairly good relief. He has not yet returned to work. Allergies Sulfa (Sulfonamide Antibiotics) Allergy (Unknown, Verified 07/25/23 08:59) childhood allergy-reaction unknown Medication List - Last Reconciled 07/25/23 by Dwaine Mcgee MD aspirin (Adult Low Dose Aspirin) 81 mg PO BEDTIME atorvastatin 40 mg PO BEDTIME cetirizine (Zyrtec) 10 mg PO DAILY PRN citalopram 20 mg PO BEDTIME oxycodone 10 mg (2 x 5 mg) PO Q4H PRN oxycodone 10 mg (2 x 5 mg) PO Q4H PRN 1 week verapamil 40 mg PO BEDTIME PFSH Medical History Pulmonary nodule Arthritis Anxiety Migraine Elevated cholesterol Surgical History H/O colonoscopy History of inguinal hernia repair (Unknown) History of shoulder surgery (Unknown) Social History Are you a primary social worker palliative care to a significant other at home: No Do you presently have visiting nurse or other home services: No Alcohol intake: current Patient Tobacco Use Status: Current everyday Tobacco user Tobacco use type: Cigarette Cigarette Packs Per Day: 1 Cigarettes Per Day: 20 Years Smoked: 40 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 Davis continues to do fairly well after undergoing left shoulder arthroscopic surgery on 06/15/2023. He does remain somewhat stiff. He will continue going to formal physical therapy for now. I did refill his prescription for oxycodone. Will contact me prior to his follow-up appointment in 2 months should any questions or concerns arise. Feel free to call me at any time should questions regarding his orthopedic management arise. Medications: Changed From oxycodone Partial Fill upon patient request. Take 1 to 2 tabs every 4 hours as needed for pain following her left shoulder surgery 10 mg (2 x 5 mg) PO Q4H 1 week PRN 40 tabs 0RF pain To oxycodone Partial Fill upon patient request. 5 mg PO Q6H PRN 30 tabs 0RF pain 10 days Coding Level of Care Code Global (59496) Diagnoses Left shoulder pain M25.512
[2023-07-25 08:57] VITALS: BMI 25.0
== END 2023-07-25 09:10 | disposition home or self-care (01) ==
PROVIDERS: PCP Internal Medicine; Visit Provider Orthopaedic Surgery
DX: M25.512 Pain in left shoulder (principal)
CPT/HCPCS: 99024

== ENCOUNTER → 2023-07-25 08:53 | Outpatient (BNVA) | payer OTHER, SELFPAY | PROVIDERS: PCP Internal Medicine; Visit Provider Orthopaedic Surgery ==

== ENCOUNTER 2023-09-25 08:59 | Outpatient (AMB) | payer OTHER, SELFPAY ==
--- NOTE | 2023-09-25 09:03 | A.OFFVIS_ITS ---
Vital Signs 09/25/23 09:05 Height 5 ft 6 in Weight 152 lb BMI 24.5 Handedness Right Intake Visit Reasons: po-Lt Shld 06/15/23 DR-2 month follow up Intake Note: Griffin is a 58 year old right hand dominant male who presents to the office today for a 2 month follow up s/p Left Shoulder 06/15/23 Pt states he is currently seeing PT for the left shoulder and is noticing slow progress and improvement with his ROM. He is taking Tylenol as needed for relief. He returned to work September 09, he says after 30 minutes to an hour sitting in the machine his shoulder becomes sore so he will stop to stretch it out. Allergies Sulfa (Sulfonamide Antibiotics) Allergy (Unknown, Verified 09/25/23 09:05) childhood allergy-reaction unknown Medication List - Last Reconciled 09/25/23 by Dwaine Mcgee MD aspirin (Adult Low Dose Aspirin) 81 mg PO BEDTIME atorvastatin 40 mg PO BEDTIME cetirizine (Zyrtec) 10 mg PO DAILY PRN citalopram 20 mg PO BEDTIME verapamil 40 mg PO BEDTIME PFSH Medical History Pulmonary nodule Arthritis Anxiety Migraine Elevated cholesterol Surgical History H/O colonoscopy History of inguinal hernia repair (Unknown) History of shoulder surgery (Unknown) Social History Are you a primary career and guidance counselor to a significant other at home: No Do you presently have visiting nurse or other home services: No Alcohol intake: current Patient Tobacco Use Status: Current everyday Tobacco user Tobacco use type: Cigarette Cigarette Packs Per Day: 1 Cigarettes Per Day: 20 Years Smoked: 40 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 Physical Exam Vital Signs: BMI result Body Mass Index 24.5 Const Other: Well-nourished well-developed very friendly male awake alert and oriented x3 in no acute distress Extrem Other: Bilateral upper extremity examination shows good capillary refill, no skin lesions noted, normal sensation light touch Left shoulder examination shows that the surgical incisions are well healed, no erythema, slightly decreased range of motion when compared to his right shoulder but improved when compared to his prior visit, 4+ out of 5 strength with supraspinatus testing, mild discomfort with range of motion, no instability Assessment & Plan Assessment & Plan (1) Left shoulder pain: Code(s): M25.512 - Pain in left shoulder Category: Medical Plan Mr. Davis continues to do well after undergoing left shoulder arthroscopic surgery on 06/15/2023. He will continue going to formal physical therapy for now. He will gradually transition to a home exercise program. The do's and don'ts of lifting were discussed at length with the patient. Will contact me prior to his follow-up appointment in 3 months should any questions or concerns arise. Feel free to call me at any time should questions regarding his orthopedic management arise. I spent 22 minutes in reviewing the patient's records and imaging studies, seeing the patient and documenting in the medical record. Coding Level of Care Code Est Pt Level 3 (89302) Diagnoses Left shoulder pain M25.512
[2023-09-25 09:05] VITALS: BMI 24.5
== END 2023-09-25 09:16 | disposition home or self-care (01) ==
PROVIDERS: PCP Internal Medicine; Visit Provider Orthopaedic Surgery
DX: M25.512 Pain in left shoulder (principal)
CPT/HCPCS: 99213

== ENCOUNTER → 2023-09-25 08:59 | Outpatient (BNVA) | payer OTHER, SELFPAY | PROVIDERS: PCP Internal Medicine; Visit Provider Orthopaedic Surgery ==

== ENCOUNTER 2023-11-28 15:00 | Outpatient (RCR) | payer OTHER, SELFPAY ==
--- NOTE | 2023-07-16 15:33 | MHC.PT.EP ---
[facility] [place] Office [place] Office [place] Office [address] Eloise Ramirez [address] [phone] F: [phone] F: [phone] F: [phone] F: [phone] Physical Therapy Plan of Care Date of Evaluation: 07/16/23 Date of Surgery: 06/15/23 Diagnosis: s/p LEFT shoulder arthroscopy, distal clavicle excision, acromioplasty, anterior capsular release, manipulation under anesthesia (DOS:06/15/23, Dr Everardo MD) (RS) Assessment: Patient is a pleasant 57 y.o. male who is referred to PT by Dr. Dwaine Mcgee MD, with Dx of s/p LEFT shoulder arthroscopy, distal clavicle excision, acromioplasty, anterior capsular release, manipulation under anesthesia (DOS:06/15/23). He presents with tightness in his capsule with limited ROM, weakness, poor posture and pain. 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 Patient will benefit from skilled PT to address aforementioned impairments and functional limitations to meet established goals. Frequency and Duration: The patient will be seen 2x/week for 4 weeks Short Term Goals: 2 weeks Patient demonstrates consistency and independence with HEP to self manage symptoms. Technology Instructor Goals: 4 weeks Patient presents with increased LEFT shoulder flexion AROM 140 degrees to be able to reach overhead to cabinets. Patient presents with increased LEFT shoulder ER 60 degress to be able to don/doff shirts without difficulty. Treatment Plan: Modalities to reduce pain, spasms and effusion. Manual therapy to restore motion and function. Therapeutic exercise to improve strength and flexibility. Neuromuscular re-education for posture and balance. Therapeutic activities to return to functional activities of daily living. Electronically signed by: Charles Marlow, PT, DPT Please sign and return to therapist. Thank you for your referral.
--- NOTE | 2023-11-28 16:04 | MHC.PT.EP ---
[facility] [place] [facility] [place] Office [place] Office [address] Eloise Ramirez [address] [phone] F: [phone] F: [phone] F: [phone] F: [phone] Physical Therapy Plan of Care Date of Evaluation: 07/16/23 Date of Surgery: 06/15/23 Diagnosis: s/p LEFT shoulder arthroscopy, distal clavicle excision, acromioplasty, anterior capsular release, manipulation under anesthesia (DOS:06/15/23, Dr Everardo MD) (RS) Assessment: Patient is a pleasant 57 y.o. male who is referred to PT by Dr. Dwaine Mcgee MD, with Dx of s/p LEFT shoulder arthroscopy, distal clavicle excision, acromioplasty, anterior capsular release, manipulation under anesthesia (DOS:06/15/23). He presents with tightness in his capsule with limited ROM, weakness, poor posture and pain. 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 Patient will benefit from skilled PT to address aforementioned impairments and functional limitations to meet established goals. Frequency and Duration: The patient will be seen 2x/week for 4 weeks Short Term Goals: STG's Met Soft Crab Shedder Goals: 4 weeks Patient presents with increased LEFT shoulder flexion AROM 140 degrees to be able to reach overhead to cabinets. MET Patient presents with increased LEFT shoulder ER 60 degress to be able to don/doff shirts without difficulty. NOT MET (50 degrees, contralateral side 55 degrees) Treatment Plan: Modalities to reduce pain, spasms and effusion. Manual therapy to restore motion and function. Therapeutic exercise to improve strength and flexibility. Neuromuscular re-education for posture and balance. Therapeutic activities to return to functional activities of daily living. Electronically signed by: Charles Marlow, PT, DPT Please sign and return to therapist. Thank you for your referral.
== END 2023-11-28 16:05 | disposition home or self-care (01) ==
LOC: HO.PT 15:00
PROVIDERS: PCP Internal Medicine; Visit Provider Orthopaedic Surgery
DX: Z98.890 Other specified postprocedural states (principal)
CPT/HCPCS: 97110; 97140; 97161; 97530

== ENCOUNTER 2023-12-25 15:04 | Outpatient (AMB) | payer OTHER, SELFPAY ==
[2023-12-25 15:07] VITALS: BMI 24.5
--- NOTE | 2023-12-25 15:07 | MHC.OFFVIS ---
Vital Signs 12/25/23 15:07 Height 5 ft 6 in Weight 152 lb BMI 24.5 Intake Visit Reasons: Left shoulder discomfort Intake Note: Griffin is a 58 year old male who presents with complaints of mild intermittent discomfort along the lateral aspect of his left shoulder after undergoing left shoulder arthroscopic surgery on 06/15/2023. He continues with his home stretching program. He denies any fevers or chills. He does not take any medicines for his discomfort. Allergies Sulfa (Sulfonamide Antibiotics) Allergy (Unknown, Verified 12/25/23 15:12) childhood allergy-reaction unknown Medication List - Last Reconciled 12/26/23 by Dwaine Mcgee MD aspirin (Adult Low Dose Aspirin) 81 mg PO BEDTIME atorvastatin 40 mg PO BEDTIME cetirizine (Zyrtec) 10 mg PO DAILY PRN citalopram 20 mg PO BEDTIME verapamil 40 mg PO BEDTIME PFSH Medical History Pulmonary nodule Arthritis Anxiety Migraine Elevated cholesterol Surgical History H/O colonoscopy History of inguinal hernia repair (Unknown) History of shoulder surgery (Unknown) Social History Are you a primary coronary care unit nurse to a significant other at home: No Do you presently have visiting nurse or other home services: No Alcohol intake: current Patient Tobacco Use Status: Current everyday Tobacco user Tobacco use type: Cigarette Cigarette Packs Per Day: 1 Cigarettes Per Day: 20 Years Smoked: 40 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 Physical Exam Vital Signs: BMI result Body Mass Index 24.5 Const Other: Well-nourished well-developed very friendly male awake alert and oriented x3 in no acute distress Extrem Other: Bilateral upper extremity examination shows good capillary refill, no skin lesions noted, normal sensation light touch Left shoulder examination shows that the surgical incisions are well healed, no erythema, almost full range of motion when compared to his right shoulder, 5/5 strength with supraspinatus testing, minimal discomfort with resisted forward flexion, no discomfort with resisted internal or external rotation Assessment & Plan Assessment & Plan (1) Left shoulder pain: Code(s): M25.512 - Pain in left shoulder Category: Medical Plan Mr. Davis continues do well after undergoing left shoulder arthroscopic surgery on 06/15/2023. She will continue with his home stretching program. The do's and don'ts of lifting were discussed at length with the patient. He will contact me prior to his follow-up appointment in 3 months should any questions or concerns arise. Feel free to call me at any time should questions regarding his orthopedic management arise. I spent 20 minutes in reviewing the patient's records and imaging studies, seeing the patient and documenting in the medical record. Coding Level of Care Code Est Pt Level 3 (28169) Complex EM visit Add On G2211 Diagnoses Left shoulder pain M25.512
== END 2023-12-25 15:33 | disposition home or self-care (01) ==
PROVIDERS: PCP Internal Medicine; Visit Provider Orthopaedic Surgery
DX: M25.512 Pain in left shoulder (principal)
CPT/HCPCS: 99213

== ENCOUNTER → 2023-12-25 15:04 | Outpatient (BNVA) | payer OTHER, SELFPAY | PROVIDERS: PCP Internal Medicine; Visit Provider Orthopaedic Surgery ==